=== PATIENT | female | born 1945 | race Caucasian/White ===

== ENCOUNTER → 2022-04-10 | Outpatient (CLI) | payer MEDICARE ==
[~2022-04-10] MED LIST: Aspirin PO; HYDR-2132 PO
== END | disposition home or self-care (01) ==
LOC: RAH 14:52
PROVIDERS: ATTEND Nurse Practitioner
DX: M17.11 Unilateral primary osteoarthritis, right knee (principal); M23.91 Unspecified internal derangement of right knee; M85.88 Other specified disorders of bone density and structure, other site; Z98.890 Other specified postprocedural states
CPT/HCPCS: 73700

== ENCOUNTER → 2022-11-15 | Outpatient (CLI) | payer MEDICARE ==
[~2022-11-15] MED LIST changes: +CETI-89 PO; +DIPH25CA85 PO; +FENTANYL CITRATE PF 50 MCG/1 ML 2ML VIAL ONE; +LISI10TA24 PO; +ROCURONIUM 10MG/1ML SYR 10 MG/ML ML ONE
== END | disposition home or self-care (01) ==
LOC: RAH 15:31
PROVIDERS: ATTEND Orthopaedic Surgery
DX: M17.11 Unilateral primary osteoarthritis, right knee (principal); M25.761 Osteophyte, right knee; M25.861 Other specified joint disorders, right knee; Z96.651 Presence of right artificial knee joint
CPT/HCPCS: 73700; J3010

== ENCOUNTER 2022-11-16 06:25 | Observation (INO) | payer MEDICARE ==
[2022-11-15 12:46] LABS: BASOPHILS % (AUTO) 0.6 % (0.0-5.0); EOSINOPHILS % (AUTO) 2.7 % (0.0-8.0); HEMATOCRIT 37.8 % (36-48); MEAN CORPUSCULAR HEMOGLOBIN 32.1 pg (27.0-33.0); MEAN CORPUSCULAR HGB CONC 32.5 g/dL (32.0-36.0); MEAN CORPUSCULAR VOLUME 98.7 fL (79-99); NEUTROPHILS % (AUTO) 69.5 % (40.0-77.0); PLATELET COUNT (AUTO) 206 K/uL (130-400); RED BLOOD CELL COUNT(AUTO) 3.83 MIL/uL (4.00-5.50); RED CELL DISTRIBUTION WIDTH 12.9 % (11.0-15.5); WHITE BLOOD COUNT (AUTO) 4.8 K/uL (4.8-10.8)
[2022-11-15 12:49] VITALS: BP 122/60
[2022-11-15 13:03] LABS: CREATININE 0.5 mg/dL (0.5-1.5); POTASSIUM 4.5 mmol/L (3.5-5.1)
[2022-11-15 13:13] LABS: INR 0.94 (0.85-1.15); PROTHROMBIN TIME 10.3 SEC (9.6-11.6)
[2022-11-15 13:14] LABS: PARTIAL THROMBOPLASTIN TIME 26.2 SEC (26.3-35.5)
[~2022-11-16] VITALS: Ht 154.9 cm; Wt 58.1 kg
[2022-11-16] VITALS (27 sets, daily range): BP systolic 105–141; BP diastolic 47–72
[~2022-11-16 06:25] MED LIST changes: -Aspirin PO; +CEFAZOLIN SODIUM 1 GM VIAL IVPB SCH; -FENTANYL CITRATE PF 50 MCG/1 ML 2ML VIAL ONE; -HYDR-2132 PO; +LACTATED RINGERS 1000ML 1,000 ML IV SCH; -ROCURONIUM 10MG/1ML SYR 10 MG/ML ML ONE
[2022-11-16] MEDS ORDERED: LIDOCAINE PF 100MG/5ML (2%) SYRINGE 5ML ONE (07:01)
[2022-11-16] MEDS ORDERED: ONDANSETRON 4MG INJ ONE (07:02)
[2022-11-16] MEDS ORDERED: PHENYLEPHRINE HCL 10 MG/ML 1ML VIAL IV ONE (07:02)
[2022-11-16] MEDS ORDERED: GLYCOPYRROLATE 1 MG/5 ML SYRINGE ONE (07:02)
[2022-11-16] MEDS ORDERED: DEXAMETHASONE SOD PHOSPHATE 10MG/ML 1ML VIAL ONE (07:02)
[2022-11-16] MEDS ORDERED: PROPOFOL 10 MG/ML 20ML VIAL IV ONE (07:02)
[2022-11-16] MEDS ORDERED: NEOSTIGMINE 5MG/5ML SYR IV ONE (07:02)
[2022-11-16] MEDS ORDERED: ROCURONIUM 10MG/1ML SYR 10 MG/ML ML ONE (07:03)
[2022-11-16] MEDS ORDERED: MIDAZOLAM HCL 1 MG/ML 2ML VIAL ONE (07:03)
[2022-11-16] MEDS ORDERED: FENTANYL CITRATE PF 50 MCG/1 ML 2ML VIAL ONE ×2 (07:03→10:58)
[2022-11-16] MEDS ORDERED: TRANEXAMIC ACID 1000MG/10ML ONE (07:10)
[2022-11-16] MEDS ORDERED: LIDOCAINE 1%-EPI 1:100,000 20 ML VIAL IJ ONE (07:24)
[2022-11-16] MEDS ORDERED: ROPIVACAINE 0.5% 5MG/ML 30ML IJ ONE (07:24)
[2022-11-16] MEDS ORDERED: CEFAZOLIN SODIUM 2 GM VIAL IVPB ONE (07:40)
[2022-11-16] MEDS ORDERED: TRANEXAMIC ACID 1000MG/10ML IV ONE (07:42)
[2022-11-16] MEDS ORDERED: VANCOMYCIN 1G/250ML KIT 500 ML IV ONE (08:45)
[2022-11-16] MEDS ORDERED: VANCOMYCIN 1G VIAL IRRIG ONE (08:50)
[2022-11-16] MEDS ORDERED: POTASSIUM CHLORIDE 10% ELIXIR 20 MEQ/15 ML UDCUP PO PRN (10:30)
[2022-11-16] MEDS ORDERED: MORPHINE 4 MG SYG IVP PRN (10:30)
[2022-11-16] MEDS ORDERED: POTASSIUM CHLORIDE 20MEQ/100ML 100 ML IV PRN (10:30)
[2022-11-16] MEDS ORDERED: HYDROCODONE/ACETAMINOPHEN 5/325 MG TAB PO PRN (10:30)
[2022-11-16] MEDS ORDERED: KCL 20 MEQ ERTAB PO PRN (10:30)
[2022-11-16] MEDS ORDERED: LIDOCAINE HCL-MPF 1% 2ML VIAL IV PRN (10:30)
[2022-11-16] MEDS ORDERED: MEPERIDINE-PF 25 MG/ML SYG ONE ×2 (10:32→10:44)
[2022-11-16] MEDS: ONDANSETRON 4MG INJ IVP PRN ×2 (11:08→15:36)
[2022-11-16] MEDS: ACETAMINOPHEN 1,000 MG/100 ML VIAL IV SCH ×2 (11:08→21:57)
[2022-11-16] MEDS: TRAMADOL HCL 50 MG TABLET PO SCH ×2 (12:38→15:36)
[2022-11-16] MEDS: IBUPROFEN 800MG + NS 250ML IV SCH ×2 (12:53→20:41)
[2022-11-16] MEDS: CEFAZOLIN SODIUM 1 GM VIAL IVP SCH (15:02)
[2022-11-16] MEDS: 0.9%NACL 1000ML 1,000 ML IV SCH ×2 (15:19→20:30)
[2022-11-16] MEDS: HYDROCODONE/ACETAMINOPHEN 10/325 MG TAB PO PRN ×2 (15:20→20:50)
[2022-11-16] MEDS: LISINOPRIL 10 MG TABLET PO SCH (20:42)
[2022-11-16] MEDS: FAMOTIDINE 20MG TAB PO SCH (20:42)
[2022-11-17] MEDS: CEFAZOLIN SODIUM 1 GM VIAL IVP SCH (00:04)
[2022-11-17 04:34] VITALS: BP 116/61
[2022-11-17] MEDS: IBUPROFEN 800MG + NS 250ML IV SCH (05:02)
[2022-11-17 05:05] LABS: HEMATOCRIT 27.8 % (36-48); MEAN CORPUSCULAR HEMOGLOBIN 32.2 pg (27.0-33.0); MEAN CORPUSCULAR HGB CONC 33.1 g/dL (32.0-36.0); MEAN CORPUSCULAR VOLUME 97.2 fL (79-99); RED BLOOD CELL COUNT(AUTO) 2.86 MIL/uL (4.00-5.50); RED CELL DISTRIBUTION WIDTH 12.5 % (11.0-15.5); WHITE BLOOD COUNT (AUTO) 10.3 K/uL (4.8-10.8)
[2022-11-17] MEDS: TRAMADOL HCL 50 MG TABLET PO SCH ×4 (05:08→17:56)
[2022-11-17 05:44] LABS: CREATININE 0.6 mg/dL (0.5-1.5); POTASSIUM 4.3 mmol/L (3.5-5.1)
[2022-11-17] MEDS: 0.9%NACL 1000ML 1,000 ML IV SCH (06:30)
[2022-11-17 08:00] VITALS: BP 111/47
[2022-11-17] MEDS: POLYETHYLENE GLYCOL 3350 17 GM POWD.PACK PO SCH (08:38)
[2022-11-17] MEDS: FAMOTIDINE 20MG TAB PO SCH ×2 (08:38→20:04)
[2022-11-17] MEDS: HYDROCODONE/ACETAMINOPHEN 10/325 MG TAB PO PRN ×3 (08:38→18:36)
[2022-11-17 12:00] VITALS: BP 119/43
[2022-11-17 16:00] VITALS: BP 137/76
[2022-11-17 19:13] VITALS: BP 146/76
[2022-11-17] MEDS: LISINOPRIL 10 MG TABLET PO SCH (20:05)
[2022-11-17] MEDS: ASPIRIN 81 MG EC TAB PO SCH (20:05)
[2022-11-17 23:04] VITALS: BP 132/63
[2022-11-18] MEDS: HYDROCODONE/ACETAMINOPHEN 10/325 MG TAB PO PRN ×2 (01:44→08:36)
[2022-11-18 03:27] VITALS: BP 142/74
[2022-11-18] MEDS: TRAMADOL HCL 50 MG TABLET PO SCH ×3 (05:56→12:06)
[2022-11-18 07:30] VITALS: BP 149/86
[2022-11-18] MEDS: FAMOTIDINE 20MG TAB PO SCH (08:35)
[2022-11-18] MEDS: POLYETHYLENE GLYCOL 3350 17 GM POWD.PACK PO SCH (08:36)
[2022-11-18] MEDS: ASPIRIN 81 MG EC TAB PO SCH (08:36)
[2022-11-18 11:30] VITALS: BP 133/69
[2022-11-19] MEDS ORDERED: BISACODYL 10 MG SUPP.RECT RC PRN (10:30)
== END 2022-11-18 16:15 | disposition home or self-care (01) ==
LOC: DAH 06:25 → DAHIP 06:26 → DAH 06:26 → 4BH 15:10
PROVIDERS: ADMIT Orthopaedic Surgery; ATTEND Orthopaedic Surgery
DX: M17.11 Unilateral primary osteoarthritis, right knee (principal); Z20.822 Contact with and (suspected) exposure to COVID-19; I10 Essential (primary) hypertension; Z96.651 Presence of right artificial knee joint; Z79.899 Other long term (current) drug therapy
CPT/HCPCS: 80048 ×2; 85025; 85610; 85730; 87426; 36415 ×2; 93005; 27447; 20985; 96365; 96366 ×2; 96375; 64447; 87070; 97161; 97039 ×6; 96376; 85027; 97116 ×2; 97530; A6260; C1776 ×3; G0378 ×52; A4663; J7030; J3370 ×2; J3010 ×2; J0690 ×4; J3490 ×4; J1100; J2710; J2001; J2250; J2704; J2405 ×2; J2175 ×2; J2795; J2370; J1741 ×3; A6223; A4649 ×5; G0168; A5120; A4215; A4223; A4222; A4221